=== PATIENT | male | born 2000 | race Caucasian/White ===

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

== ENCOUNTER 2019-10-21 08:33 | Outpatient (CLI) | payer OTHER ==
--- NOTE | 2019-10-21 09:18 | ULT ---
EXAM: US Abdominal CLINICAL HISTORY: Abdominal pain. COMPARISON: None. FINDINGS: Pancreas: The head and proximal pancreatic body have a normal echotexture. The remainder the pancrea s is obscured by bowel gas IVC: Visualized IVC has a normal caliber. Aorta: Visualized aorta has a normal caliber. Liver:Normal hepatic parenchymal echotexture. No hepatic masses or intrahepatic biliary dilatation. T he contour of the hepatic margin is maintained. Right hepatic lobe measures 15.7 cm Gallbladder: No sonographic evidence of cholelithiasis, gallbladder wall thickening or pericholecysti c fluid. Donahue's sign:Negative CBD: 0.3 cm common bile duct diameter Portal vein: Patent. Appropriate directional flow. Right kidney: Normal cortical echotexture. No hydronephrosis. Right kidney measuring 9.9 x 4.1 x 3.9 cm in length. Left kidney: Normal cortical echotexture. No hydronephrosis. Left kidney measuring 9.2 x 4.1 x 4.5 c m in length Spleen: Normal echotexture IMPRESSION: Unremarkable exam.
== END 2019-10-21 08:34 | disposition home or self-care (01) ==
LOC: BICULT 08:33
PROVIDERS: ATTEND Family Medicine
DX: R10.84 Generalized abdominal pain (principal)
CPT/HCPCS: 93975